=== PATIENT | male | born 1965 | race African-American/Black ===

== ENCOUNTER 2024-04-20 22:07 | Emergency (ER) | payer SELFPAY ==
[2024-04-20 22:09] VITALS: BP 144/100; PULSE 86; RESP 15; TEMP 36.9; O2SAT 98
[2024-04-20] MEDS: ACETAMINOPHEN 500 MG TABLET 1000 MG PO (22:52)
[2024-04-20 22:53] LABS: Appearance Urine Clear (Clear); Bilirubin Urine Negative (Negative); Blood Urine Negative (Negative); Color Urine Yellow (Yellow); Glucose Urine UA Negative (Negative); Ketones Urine Negative (Negative); Leukocyte Esterase Ur Negative LEU/UL (Negative); Nitrate Urine Negative (Negative); Protein Urine Negative (Negative); Specific Grav Ur 1.021 (1.001-1.035); pH Urine 6.5 (5.0-9.0)
[2024-04-20] MEDS: LIDOCAINE 5% PATCH 1 PATCH TRANSDERM (22:54)
[2024-04-20] MEDS: CYCLOBENZAPRINE HCL 10 MG TABLET PO (22:54)
--- NOTE | 2024-04-20 22:56 | ED.BACK ---
HPI - Back Pain/Injury General Chief Complaint: Back Pain/Injury Stated Complaint: LOW BACK PAIN Time Seen by Provider: 04/20/24 22:26 History of Present Illness HPI Narrative: 59-year-old male presents to the emergency department for back pain that started today after work. 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 States he has diffuse back pain when he extends his back after picking something off of the ground. He states his back does not hurt to palpation and he denies difficulty ambulating. he denies known trauma to his back, saddle anesthesia, radicular symptoms, fever, nausea or vomiting, abdominal pain, history of kidney stones, extremity weakness or numbness, dysuria or hematuria, surgeries or procedures to his back. Denies bowel or bladder incontinence, urinary retention. Related Data Allergies Allergy/AdvReac Type Severity Reaction Status Date / Time No Known Allergies Allergy Verified 04/20/24 22:14 Review of Systems Review of Systems: CONSTITUTIONAL: Denies fever, chills, or sweats. EYES: Denies visual changes, redness, or discharge. ENT: Denies rhinorrhea, congestion, sore throat, or otalgia. CARDIOVASCULAR: Denies chest pain, palpitations, or edema. RESPIRATORY: Denies cough or dyspnea. GASTROINTESTINAL: Denies abdominal pain, nausea, vomiting, or diarrhea. GENITOURINARY: Denies dysuria or hematuria. SKIN: Denies rash or itching. MUSCULOSKELETAL: See HPI NEUROLOGIC: Denies headache, numbness, or weakness. PSYCHIATRIC: Denies anxiety or depression. Exam Narrative: GENERAL: Well-appearing, well-nourished, and in no acute distress. HEAD: Normocephalic, atraumatic. NECK: Supple. BACK: no midline thoracolumbar spinous tenderness, step-offs or deformities. No tenderness throughout the back to palpation. Full range of motion of the back including flexion and rotation, however increased pain with extension of back. CHEST: Clear to auscultation. No respiratory distress. HEART: Regular rate and rhythm. No murmur heard. Normal peripheral pulses. ABDOMEN: Soft, nontender, nondistended, normal active bowel sounds. EXTREMITIES: Normal range of motion. No edema. Hip flexion, extension, knee flexion and extension, dorsiflexion and plantar flexion 5/5 bilaterally. Sensation intact throughout, no saddle anesthesia. Negative straight leg raise bilaterally. SKIN: Warm, dry, no rash. NEURO: No focal deficits. Alert and oriented x3. Ambulatory without ataxia Course Vital Signs Vital signs: Vital Signs Temperature 98.4 F 04/20/24 22:09 Pulse Rate 86 04/20/24 22:09 Respiratory Rate 15 04/20/24 22:09 Blood Pressure 144/100 H 04/20/24 22:09 Pulse Oximetry 98 04/20/24 22:09 Oxygen Delivery Room Air 04/20/24 22:09 Temperature 98.4 F 04/20/24 22:09 Pulse Rate 86 04/20/24 22:09 Respiratory Rate 15 04/20/24 22:09 Blood Pressure 144/100 H 04/20/24 22:09 Pulse Oximetry 98 04/20/24 22:09 Oxygen Delivery Room Air 04/20/24 22:09 MDM - Back Pain/Injury MDM Narrative Medical decision making narrative: 59-year-old male presents to the emergency department for back pain with extension of his back after working in the factory and picking up boxes all day. Triage vital significant for hypertension of 144/100. He does have a history of hypertension. He has no midline spinous tenderness on exam. He is neurovascularly intact and ambulatory without difficulty. Pain is reproduced when he stands up and extends his back after bending over. Suspect symptoms are muscular in nature. He was treated with Flexeril, lidocaine patch and Tylenol with improvement. His UA is unremarkable. Feel he is safe to be discharged home with scripts for Flexeril, Tylenol and lidocaine patches. Advised follow-up with PCP. Strict ED return precautions discussed. He is agreeable to plan verbalized understanding. Discharged in stable condition. Lab Data Labs: Lab R
[2024-04-20 23:00] LABS: Add Urine Microscopic? NO
[2024-04-20 23:35] VITALS: BP 146/98; PULSE 85; RESP 17; O2SAT 100
== END 2024-04-20 23:35 | disposition home or self-care (01) ==
PROVIDERS: Emergency Provider Physician Assistant
DX: S39.012A Strain of muscle, fascia and tendon of lower back, initial encounter (principal); X50.0XXA Overexertion from strenuous movement or load, initial encounter
CPT/HCPCS: 81003; 99283; A9270